=== PATIENT | female | born 1995 | race Caucasian/White ===

== ENCOUNTER 2025-04-03 08:29 | Emergency (ER) | payer OTHER ==
[~2025-04-03] VITALS: Ht 172.7 cm; Wt 68.0 kg
[2025-04-03 08:33] VITALS: BP 127/77; PULSE 98; RESP 20; TEMP 36.7; O2SAT 98
[2025-04-03] MEDS ORDERED: TOPUD MT (11:01)
[2025-04-03] MEDS ORDERED: IBUP-1523 MT (11:01)
== END 2025-04-03 11:11 | disposition home or self-care (01) ==
LOC: ER 08:29
DX: M25.531 Pain in right wrist (principal); M25.562 Pain in left knee; V89.2XXA Person injured in unspecified motor-vehicle accident, traffic, initial encounter; Y92.410 Unspecified street and highway as the place of occurrence of the external cause; Y93.89 Activity, other specified; Y99.8 Other external cause status
CPT/HCPCS: 73110; 99283